=== PATIENT | male | born 1985 | race Asian ===

== ENCOUNTER → 2024-07-11 | Outpatient (CLI) | payer OTHER ==
[2024-07-15 01:42] LABS: ALBUMIN %,URINE 84.7 %; ALPHA-1 %,URINE 2.5 %; ALPHA-2 %,URINE 7.5 %; BETA GLOBULIN %,URINE 5.3 %; HOURS COLLECTED 24 hr; TOTAL VOLUME 2400 mL
== END ==
LOC: LAB SHORT 12:47 → LAB 12:47
PROVIDERS: Internal Medicine
DX: E78.89 Other lipoprotein metabolism disorders (principal)
CPT/HCPCS: 81050; 84156; 84166; 86335